=== PATIENT | male | born 1960 | race Caucasian/White ===

== ENCOUNTER → 2017-08-15 | Outpatient (CLI) | payer BC ==
[~2017-08-15] MED LIST: OMNIPAQUE 350 MG/ML, 100ML BOTTLE ONE
== END ==
LOC: CFH 11:30
PROVIDERS: ATTEND Family Medicine
DX: M79.1 Myalgia (principal); R53.83 Other fatigue; R63.0 Anorexia; R63.4 Abnormal weight loss; R69 Illness, unspecified
CPT/HCPCS: 71260; 74177; Q9967

== ENCOUNTER → 2018-03-06 | Outpatient (CLI) | payer BC | END | disposition home or self-care (01) | LOC: CFH 09:07 | PROVIDERS: ATTEND Family Medicine | DX: M47.892 Other spondylosis, cervical region (principal); M48.02 Spinal stenosis, cervical region | CPT/HCPCS: 70450; 72050 ==

== ENCOUNTER → 2018-06-03 | Outpatient (CLI) | payer BC | END | disposition home or self-care (01) | LOC: CFH 06:52 | PROVIDERS: ATTEND Family Medicine | DX: H53.9 Unspecified visual disturbance (principal); R51 Headache | CPT/HCPCS: 70551 ==

== ENCOUNTER 2018-12-02 14:36 | Outpatient (CLI) | payer BC | END 2018-12-02 23:59 | disposition home or self-care (01) | LOC: CVU 14:36 | PROVIDERS: ATTEND Internal Medicine Cardiovascular Disease | DX: I34.0 Nonrheumatic mitral (valve) insufficiency (principal); I11.9 Hypertensive heart disease without heart failure; E78.5 Hyperlipidemia, unspecified; I71.2 Thoracic aortic aneurysm, without rupture | CPT/HCPCS: 0399T; 93306 ==